=== PATIENT | female | born 1930 ===

== ENCOUNTER 2017-08-10 08:46 | Outpatient (CLI) | payer OTHER | END 2017-08-10 08:50 | disposition home or self-care (01) | LOC: SONOGRAMA 08:46 | DX: E04.2 Nontoxic multinodular goiter (principal) ==

== ENCOUNTER 2018-08-09 09:00 | Outpatient (CLI) | payer OTHER | END 2018-08-09 09:01 | disposition home or self-care (01) | LOC: SONOGRAMA 09:00 | DX: E04.1 Nontoxic single thyroid nodule (principal) ==